=== PATIENT | female | born 1980 | race Caucasian/White ===

== ENCOUNTER 2023-09-15 11:26 | Observation (INO) | payer BC, SELFPAY ==
[2023-09-15] VITALS (14 sets, daily range): BP systolic 162–200; BP diastolic 99–122; BMI 41.3
--- NOTE | 2023-09-15 08:36 | ED.GENMED ---
History of Present Illness
<Kianna Smith PA-C - Last Filed: 09/15/23 13:54>
General
Chief Complaint: Heart Rate Problem
Source: patient
Exam Limitations: none
Time Seen by Provider: 09/15/23 08:01
Nursing documentation reviewed up to this point in time: agreed with
Travel History
Have you had any contact with someone who has COVID-19?: No
Do you have any symptoms of coronavirus? Fever > 100 degrees, chills, cough, shortness of breath, sore throat, loss of taste or smell, muscle aches, or headache?: No
History of Present Illness
History of Present Illness:
43 y/o F h/o HTN, depression
has feeling of heart racing, lightheadedness, nausea
pt says that yesterday after waking up she felt her heart rate was elevated. she didn't check it to know how fast but she felt anxious because of it. all day she tried to do things to help calm her but she wasn't overly stressed about anything and
has no h/o anxiety and was unaware of any specific triggers.
she felt nauseated, lack of appetite and lightheaded at times
she didnt sleep at all last night due to feeling her heart rate was elevated and she couldn't calm down. pt had some diarrhea yesterday and vomited x 3 day, was wretching a bit but didn't have anything in her stomach.
she has not had any chest pain, leg swelling, denies OCP use, h/o dvt/pe, recent surgery or travel
she denies ilicit drug use, alcohol, excessive caffeine
pt is sweaty now and says she isn't sure if she had a fever.
about 2 weeks ago she started taking 3 new meds for suspected
Past History
<Kianna Smith PA-C - Last Filed: 09/15/23 13:54>
Past History
ED Past Medical History: Asthma and HTN
ED Past Surgical History: Urological
Social History
Tobacco: Non-smoker
Alcohol: None
Drug: None
Personal:
Living: with family
Employment: Employed
Family History
Family History: Other (Noncontributory)
Phy Exam
<Kianna Smith PA-C - Last Filed: 09/15/23 13:54>
Physical Exam
Physical Exam:
GENERAL: Alert , very anxious
EYE: pupils equal and reactive
NECK: Supple
ENT: erythema, dry mouth
CARDIAC: tachycardia, no murmur, no edema
LUNGS: Clear breath sounds bilaterally, no acute respiratory distress, no wheezes/rales/rhonchi
ABDOMEN: Soft, without focal tenderness, no r/g, no cvat, normal bowel sounds, obese
NEUROLOGICAL: Alert and oriented, no focal neuro deficits
SKIN: Warm and dry, abrasion left ankle, abdomen, noninfected
a few petechiae around her eyes;
MUSCULOSKELETAL: No edema, well perfused. neg albert's sign
PSYCH: very anxious
Course
<Kianna Smith PA-C - Last Filed: 09/15/23 13:54>
Orders/Labs/Results
Orders:
Orders
09/15/23 07:38
ECG [Electrocardiogram (*1)] Urgent
Reason for Study: Chest Pain
EKG- Treatment ONCE
09/15/23 08:15
0.9% Sodium Chloride 1000 ml [Nss] 1,000 ml IV BOLUS
Ondansetron Injectable [Zofran] 4 mg IV NOW STA
09/15/23 08:17
Lorazepam [Ativan] 1 mg IV NOW STA
Test Result ONCE
09/15/23 08:54
COVID-19 Antigen Urgent
Source: Nasal Swab
Complete Blood Count/With Diff Urgent
Comprehensive Metabolic Panel Urgent
Glycohemoglobin (HgbA1c) Urgent
HCG, Serum Qualitative Screen Urgent
Magnesium Urgent
TSH Reflex To Free T4 Urgent
Urinalysis Reflex To Culture Urgent
Date Specimen was Collected: 09/15/23
Time Specimen was Collected: 08:36
Urine Microscopic Reflex Cult Urgent
Influenza A+B Rapid Molecular Urgent
ALLIE Source: Nasal Swab
Specimen Description:
09/15/23 09:02
Lactic Acid Q4H
Comment: CANCEL 2nd LACTIC ACID IF 1st LACTIC ACID IS LESS THAN 2
Blood Culture Q30M
ALLIE Source: Blood/Venous
Specimen Description:
Blood Culture Q30M
ALLIE Source: Blood/Venous
Specimen Description:
09/15/23 09:03
D-Dimer Urgent
09/15/23 09:33
US Abdomen Complete/Upper Urgent
Comment:
Reason For Exam: nausea/vomiting, fever
09/15/23 09:37
0.9% Sodium Chloride 1000 ml [Nss] 1,000 ml IV BOLUS
09/15/23 10:05
Magnesium Sulfate 2 Gram/50 ml [Magnesium Sulfate] 2 gram in 50 ml IV NOW
09/15/23 10:45
PTT Urgent
Prothrombin Time Urgent
09/15/23 11:11
Labetalol HCl [Trandate] 10 mg IV NOW STA
Lorazepam [Ativan] 1 mg IV Q4HPRN PRN
09/15/23 11:12
Admit/Transfer Patient As Directed
Co-Sign Provider:
Level of Care: Observation services
Assign to:: Telemetry
Physician / Group: teo smiley
Diagnosis: prob viral syndrome
Reason for Telemetry: Medication for Arrhythmia
Date to Stop Telemetry: 09/17/23
Time to Stop Telemetry: 11:00
09/15/23 11:14
Code Status As Directed
Resuscitation Status: Full Code
09/15/23 11:19
Add On- LAB Routine
Tests Added?: HgA1C
EKG [Electrocardiogram (*1)] Urgent
Reason for Study: QTc Monitoring
09/15/23 12:36
Lactic Acid Q4H
Comment: CANCEL 2nd LACTIC ACID IF 1st LACTIC ACID IS LESS THAN 2
09/15/23 20:00
Magnesium Sulfate 1 G/D5w [Magnesium Sulfate] 1 gm in 100 ml IV ONCE
09/17/23 11:00
DC Protocol for Telemetry ONCE
Abnormal Lab Results
09/15/23 09/15/23 09/15/23
08:54 09:02 09:03
Hgb 17.4 H g/dL
(12.0-16.0)
Hct 48.3 H %
(37.0-47.0)
MCH 33.1 H pg
(27.0-31.0)
Plt Count 85 L 10^3/uL
(130-400)
Absolute Lymphs (auto) 0.7 L 10^3/uL
(1.2-3.4)
Neutrophils % 78.6 H %
(42.2-75.2)
Lymphocytes % 12.5 L %
(20.5-51.1)
PT
D-Dimer 0.70 H ug/mlFEU
(0.00-0.50)
Sodium 131 L mmol/L
(135-145)
Chloride 96 L mmol/L
(98-107)
Creatinine 0.5 L mg/dL
(0.6-1.0)
Glucose 162 H mg/dl
(70-99)
Hemoglobin A1c 5.9 H %
(4.0-5.6)
Lactic Acid 2.4 H mmol/L
(0.7-2.0)
Magnesium 1.2 L mg/dl
(1.6-2.3)
Total Bilirubin 3.3 H mg/dl
(0.2-1.3)
AST 95 H U/L
(14-36)
ALT 60 H U/L
(0-35)
Alkaline Phosphatase 186 H U/L
(38-126)
Total Protein 8.8 H g/dl
(6.3-8.2)
Urine Ketones 3+ A
(Negative)
Urine Bilirubin 1+ A
(Negative)
Urine Urobilinogen 2+ A
(Neg - 1+)
Leukocyte Esterase Rfl Trace A
(Negative)
Urine Bacteria (Reflex) Few A
(Negative)
09/15/23
10:45
Hgb
Hct
MCH
Plt Count
Absolute Lymphs (auto)
Neutrophils %
Lymphocytes %
PT 15.1 H Sec
(11.4-14.6)
D-Dimer
Sodium
Chloride
Creatinine
Glucose
Hemoglobin A1c
Lactic Acid
Magnesium
Total Bilirubin
AST
ALT
Alkaline Phosphatase
Total Protein
Urine Ketones
Urine Bilirubin
Urine Urobilinogen
Leukocyte Esterase Rfl
Urine Bacteria (Reflex)
09/15/23 08:54
09/15/23 08:54
Vital Signs
Initial and Last Documented VS:
Initial Vital Signs
Temp Pulse Resp BP Pulse Ox
98.0 F 129 16 200/110 98
09/15/23 07:49 09/15/23 07:49 09/15/23 07:49 09/15/23 07:49 09/15/23 07:49
Last Documented Vital Signs
Temp Pulse Resp BP Pulse Ox
98.0 F 110 20 163/114 93
09/15/23 07:49 09/15/23 11:31 09/15/23 11:30 09/15/23 11:31 09/15/23 11:30
<Sean Marshall, DO - Last Filed: 09/15/23 13:14>
Orders/Labs/Results
Orders:
Orders
09/15/23 07:38
ECG [Electrocardiogram (*1)] Urgent
Reason for Study: Chest Pain
EKG- Treatment ONCE
09/15/23 08:15
0.9% Sodium Chloride 1000 ml [Nss] 1,000 ml IV BOLUS
Ondansetron Injectable [Zofran] 4 mg IV NOW STA
09/15/23 08:17
Lorazepam [Ativan] 1 mg IV NOW STA
Test Result ONCE
09/15/23 08:54
COVID-19 Antigen Urgent
Source: Nasal Swab
Complete Blood Count/With Diff Urgent
Comprehensive Metabolic Panel Urgent
Glycohemoglobin (HgbA1c) Urgent
HCG, Serum Qualitative Screen Urgent
Magnesium Urgent
TSH Reflex To Free T4 Urgent
Urinalysis Reflex To Culture Urgent
Date Specimen was Collected: 09/15/23
Time Specimen was Collected: 08:36
Urine Microscopic Reflex Cult Urgent
Influenza A+B Rapid Molecular Urgent
ALLIE Source: Nasal Swab
Specimen Description:
09/15/23 09:02
Lactic Acid Q4H
Comment: CANCEL 2nd LACTIC ACID IF 1st LACTIC ACID IS LESS THAN 2
Blood Culture Q30M
ALLIE Source: Blood/Venous
Specimen Description:
Blood Culture Q30M
ALLIE Source: Blood/Venous
Specimen Description:
09/15/23 09:03
D-Dimer Urgent
09/15/23 09:33
US Abdomen Complete/Upper Urgent
Comment:
Reason For Exam: nausea/vomiting, fever
09/15/23 09:37
0.9% Sodium Chloride 1000 ml [Nss] 1,000 ml IV BOLUS
09/15/23 10:05
Magnesium Sulfate 2 Gram/50 ml [Magnesium Sulfate] 2 gram in 50 ml IV NOW
09/15/23 10:45
PTT Urgent
Prothrombin Time Urgent
09/15/23 11:11
Labetalol HCl [Trandate] 10 mg IV NOW STA
Lorazepam [Ativan] 1 mg IV Q4HPRN PRN
09/15/23 11:12
Admit/Transfer Patient As Directed
Co-Sign Provider:
Level of Care: Observation services
Assign to:: Telemetry
Physician / Group: teo smiley
Diagnosis: prob viral syndrome
Reason for Telemetry: Medication for Arrhythmia
Date to Stop Telemetry: 09/17/23
Time to Stop Telemetry: 11:00
09/15/23 11:14
Code Status As Directed
Resuscitation Status: Full Code
09/15/23 11:19
Add On- LAB Routine
Tests Added?: HgA1C
EKG [Electrocardiogram (*1)] Urgent
Reason for Study: QTc Monitoring
09/15/23 12:36
Lactic Acid Q4H
Comment: CANCEL 2nd LACTIC ACID IF 1st LACTIC ACID IS LESS THAN 2
09/15/23 20:00
Magnesium Sulfate 1 G/D5w [Magnesium Sulfate] 1 gm in 100 ml IV ONCE
09/17/23 11:00
DC Protocol for Telemetry ONCE
Abnormal Lab Results
09/15/23 09/15/23 09/15/23
08:54 09:02 09:03
Hgb 17.4 H g/dL
(12.0-16.0)
Hct 48.3 H %
(37.0-47.0)
MCH 33.1 H pg
(27.0-31.0)
Plt Count 85 L 10^3/uL
(130-400)
Absolute Lymphs (auto) 0.7 L 10^3/uL
(1.2-3.4)
Neutrophils % 78.6 H %
(42.2-75.2)
Lymphocytes % 12.5 L %
(20.5-51.1)
PT
D-Dimer 0.70 H ug/mlFEU
(0.00-0.50)
Sodium 131 L mmol/L
(135-145)
Chloride 96 L mmol/L
(98-107)
Creatinine 0.5 L mg/dL
(0.6-1.0)
Glucose 162 H mg/dl
(70-99)
Hemoglobin A1c 5.9 H %
(4.0-5.6)
Lactic Acid 2.4 H mmol/L
(0.7-2.0)
Magnesium 1.2 L mg/dl
(1.6-2.3)
Total Bilirubin 3.3 H mg/dl
(0.2-1.3)
AST 95 H U/L
(14-36)
ALT 60 H U/L
(0-35)
Alkaline Phosphatase 186 H U/L
(38-126)
Total Protein 8.8 H g/dl
(6.3-8.2)
Urine Ketones 3+ A
(Negative)
Urine Bilirubin 1+ A
(Negative)
Urine Urobilinogen 2+ A
(Neg - 1+)
Leukocyte Esterase Rfl Trace A
(Negative)
Urine Bacteria (Reflex) Few A
(Negative)
09/15/23
10:45
Hgb
Hct
MCH
Plt Count
Absolute Lymphs (auto)
Neutrophils %
Lymphocytes %
PT 15.1 H Sec
(11.4-14.6)
D-Dimer
Sodium
Chloride
Creatinine
Glucose
Hemoglobin A1c
Lactic Acid
Magnesium
Total Bilirubin
AST
ALT
Alkaline Phosphatase
Total Protein
Urine Ketones
Urine Bilirubin
Urine Urobilinogen
Leukocyte Esterase Rfl
Urine Bacteria (Reflex)
09/15/23 08:54
09/15/23 08:54
Vital Signs
Initial and Last Documented VS:
Initial Vital Signs
Temp Pulse Resp BP Pulse Ox
98.0 F 129 16 200/110 98
09/15/23 07:49 09/15/23 07:49 09/15/23 07:49 09/15/23 07:49 09/15/23 07:49
Last Documented Vital Signs
Temp Pulse Resp BP Pulse Ox
98.0 F 110 20 163/114 93
09/15/23 07:49 09/15/23 11:31 09/15/23 11:30 09/15/23 11:31 09/15/23 11:30
<Kianna Smith PA-C - Last Filed: 09/15/23 13:54>
MDM/Problems Addressed
Differential Diagnosis Includes:
sepsis, anxiety, viral syndrome,less likely PE
MDM/Problems Addressed:
43 y/o F with h /o ureterolithiasis, HTN; 2 days heart racing, anxious feeling, n/v x 3, a few loose stools; no pain, no cp, sob; very anxious; tachy 120s on arrival, low grade temp, some petechiae around her eyes, dry mouth, abdomen nontender; w/u
with thrombocytopenia 85k, mild transaminitis, t bili 3, ketonuria; flu covid neg; lactate 2.4; suspect this is viral in nature but still tachy after 1 liter fluid, getting 2nd liter, US of abdomen to be sure no choledocho which was neg
consider pt could have PE though less likely
signed out to hospitalist for admission, further work up, lactic acid trending, IV hydration, ,etc
<Kianna Smith PA-C - Last Filed: 09/15/23 13:54>
*Critical Care Note
Total Time (30-74mins, 75-104mins- exclusive of procedures): Not Applicable
ED Attending Note
<Kianna Smith PA-C - Last Filed: 09/15/23 13:54>
-
Portions of this chart may have been created with voice recognition software.� Occasional wrong word or��sound alike� substitutions may have occurred due to the inherent limitations of voice recognition software.
<Sean Marshall DO - Last Filed: 09/15/23 13:14>
ED Attending Note
Patient seen and examined by attending physician: Yes
ED Attending Note:
I have reviewed and agree with history and treatment plan by Eliz Smith. My exam revealed 43-year-old female with bilateral periorbital petechiae, abrasion with petechiae on abdomen, soft abdomen. Patient in no distress. Persistent sinus
tachycardia. Admit for thrombocytopenia and hyperbilirubinemia evaluation.
Discharge Plan
Departure
Patient Disposition: Admit
Date of Disposition: 09/15/23
Time of Disposition: 09:51
Admit to: Telemetry
Presentation/result/management discussed w/ accepting MD/DO: Hospitalist
Discharge Problem:
Tachycardia, Thrombocytopenia
Interventions
Interventions:
*Risk Screen - Suicide Last Done: 09/15/23 09:07
*General Assessment Last Done: 09/15/23 09:07
*Neglect/Abuse Screening Last Done: 09/15/23 09:07
ED- Fall Risk Assessment Last Done: 09/15/23 09:07
*ED COVID-19 Vaccine History Last Done: 09/15/23 07:49
ED- Cardiac Assessment Last Done: 09/15/23 09:07
ED- Pulmonary Assessment Last Done: 09/15/23 09:07
[2023-09-15] MEDS: ZOFRAN 4 MG IV (08:48)
[2023-09-15] MEDS: NSS 1000 IV ×3 (08:48→18:21)
[2023-09-15] MEDS: ATIVAN 1 MG IV ×2 (08:49→18:23)
[2023-09-15 09:10] LABS: % Basophils 0.4 % (0-2); % Eosinophils 0.2 % (0-6); % Immature Granulocytes 0.2 % (0-0.5); % Lymphocytes 12.5 % (20.5-51.1); % Monocytes 8.1 % (1.7-9.3); % Neutrophils 78.6 % (42.2-75.2); Absolute Lymphocytes 0.7 10^3/uL (1.2-3.4); Absolute Monocytes 0.4 10^3/uL (0.1-0.6); Absolute Neutrophils 4.3 10^3/uL (1.4-6.5); Hematocrit 48.3 % (37.0-47.0); Hemoglobin 17.4 g/dL (12.0-16.0); Mean Corpuscular Hgb 33.1 pg (27.0-31.0); Nucleated Red Blood Cells % 0 %; Red Blood Cell Count 5.25 10^6/uL (4.20-5.40); Red Cell Dist. Width 12.9 % (11.5-14.5); White Blood Cell Count 5.5 10^3/uL (4.8-10.8)
[2023-09-15 09:16] LABS: HCG, Serum Qualitative Screen Negative
[2023-09-15 09:18] LABS: Urine Albumin Trace (Neg - Trace); Urine Bilirubin 1+ (Negative); Urine Character Slightly Cloudy (Clear); Urine Color Amber; Urine Glucose Negative (Negative); Urine Ketone 3+ (Negative); Urine Leukocyte Trace (Negative); Urine Nitrite Negative (Negative); Urine Occult Blood Negative (Negative); Urine Urobilinogen 2+ (Neg - 1+)
[2023-09-15 09:21] LABS: ALT (SGPT) 60 U/L (0-35); AST (SGOT) 95 U/L (14-36); Alkaline Phosphatase 186 U/L (38-126); Blood Urea Nitrogen 8 mg/dl (7-17); COVID-19 Antigen Negative (Negative); Calcium 9.6 mg/dl (8.4-10.2); Carbon Dioxide 22 mmol/L (22-30); Chloride 96 mmol/L (98-107); Glucose 162 mg/dl (70-99); Magnesium 1.2 mg/dl (1.6-2.3); Potassium 4.1 mmol/L (3.5-5.1); Sodium 131 mmol/L (135-145); Total Bilirubin 3.3 mg/dl (0.2-1.3); Total Protein 8.8 g/dl (6.3-8.2); eGFR > 60.00
[2023-09-15 09:27] LABS: Lactic Acid 2.4 mmol/L (0.7-2.0)
[2023-09-15 09:29] LABS: Urine Squamous Cell 26-30 /LPF (Few)
[2023-09-15 09:30] LABS: Urine Bacteria Few (Negative); Urine Red Blood Cell 0-2 /HPF (0-2)
[2023-09-15 09:32] LABS: Mean Platelet Volume 10.2 fL (7.4-10.4); Platelet Count 85 10^3/uL (130-400)
[2023-09-15 09:50] LABS: TSH Reflex To Free T4 1.06 uIU/ml (0.47-4.68)
--- NOTE | 2023-09-15 10:07 | HPS.HSE ---
Family Physician
-
Family Physician: Paola Fritz
Chief Complaint
-
palpitations, elevated BP
History of Present Illness
43-year-old female with a past medical history of morbid obesity, anxiety, depression, gastroesophageal reflux disease, IBS, exercise-induced asthma, and kidney stones presents with palpitations and elevated blood pressure since yesterday. Patient
reports that she has been feeling nauseous with intermittent vomiting for the last 3 days. Yesterday she started feeling palpitations. She took her blood pressure at home, and the monitor was red. She looked it up on the Internet, and read that
she should go to the ER. She reports palpitations as well, nausea, with dry heaves. She has not been able to sleep due to the symptoms. She denies abdominal pain, denies constipation, denies diarrhea. No fever, no chest pain. It is difficult
for her to take deep breaths with her current symptoms. She was recently seen by urology in the office for right kidney stone, her right flank pain resolved with taking Toradol, Flomax, and Gemtesa. She does have nasal congestion which she thinks
is from her allergies. She denies sore throat, cough.
Medical History
Past Medical History
Past Medical History: Reports Other
Additional Past Medical History:
1. Kidney stones
2. Hypertension.
3. IBS.
4. Depression/anxiety.
5. Allergies/exercise-induced asthma.
6. Glucose intolerance.
7. GERD.
8. Vitamin D deficiency.
9. Hyperlipidemia.
10. Eczema
Past Surgical History: Reports Other
Additional Past Surgical History:
Kidney stones, surgeries in the past as well to remove stones
Social History
Tobacco: Non-smoker
Alcohol: None
Drug: None
Personal:
Living: With Family
Family History
Family History: Not pertinent
Allergies / Home Medications
Allergies reflects when Allergies were last updated in [facility].
Home Medications with original date entered in [facility]
Allergy/Medication List:
Allergies
Allergy/AdvReac Type Severity Reaction Status Date / Time
amoxicillin trihydrate Allergy Abdominal Verified 09/15/23 07:50
[From Augmentin] pain
erythromycin base Allergy Abdominal Verified 09/15/23 07:50
pain
potassium clavulanate Allergy Abdominal Verified 09/15/23 07:50
[From Augmentin] pain
Home Medications Table - record
�Medication �Instructions �Recorded �Confirmed
escitalopram oxalate 20 mg tablet 20 mg PO QPM ##0 06/10/12 09/15/23
(Lexapro)
montelukast 10 mg tablet 10 mg PO HS 06/10/12 09/15/23
famotidine 20 mg tablet (Pepcid) 20 mg PO HS 09/15/23 09/15/23
ketorolac 10 mg tablet 10 mg PO Q6HPRN PRN mild pain 09/15/23 09/15/23
lisinopril 20 1 tab PO QPM 09/15/23 09/15/23
mg-hydrochlorothiazide 25 mg tablet
loratadine 10 mg tablet (Claritin) 10 mg PO HS 09/15/23 09/15/23
omeprazole 20 mg tablet,delayed 20 mg PO HS 09/15/23 09/15/23
release
tamsulosin 0.4 mg capsule 0.4 mg PO QPM 09/15/23 09/15/23
Review of Systems
-
A 12 point ROS was completed and negative except as noted: Yes
Physical Exam
Vital Signs
Vital Signs
Temp Pulse Resp BP Pulse Ox
98.0 F 129 16 200/110 98
09/15/23 07:49 09/15/23 07:49 09/15/23 07:49 09/15/23 07:49 09/15/23 07:49
Physical Exam
General: No Apparent Distress and Morbidly Obese
HEENT: NormoCephalic, Anicteric, Moist mucous membranes and Atraumatic
Respiratory: Clear
Cardiac: S1/S2, Regular Rhythm and Tachycardia
GI: Soft, Non Tender, Non Distended and Normal Bowel Sounds
Musculoskeletal: No Clubbing, No Cyanosis and No Edema
Skin: Warm and Dry
Neuro: Awake, Alert, Oriented and AO x 3
Laboratory Results
-
09/15/23 08:54
09/15/23 08:54
Laboratory Results
Lactic Acid 2.4 mmol/L (0.7-2.0) H 09/15/23 09:02
Total Bilirubin 3.3 mg/dl (0.2-1.3) H 09/15/23 08:54
AST 95 U/L (14-36) H 09/15/23 08:54
ALT 60 U/L (0-35) H 09/15/23 08:54
Alkaline Phosphatase 186 U/L (38-126) H 09/15/23 08:54
Impression/Plan
-
#Palpitations
EKG was sinus tachycardia in the ER, rate 120s
Check D-dimer, if positive would need chest CT to rule out PE
#Hypertensive urgency
Hold home lisinopril�hydrochlorothiazide
Give labetalol 10 mg IV stat and Q6H prn SBP >160
When tolerating p.o., start labetalol 100 mg twice a day
#Nausea/vomiting
CT abdomen and pelvis shows
Diffuse fatty infiltration of the liver.
4 mm nonobstructing right renal calculus
18 mm right renal cyst
Possible viral etiology, continue antiemetics, IV fluids, supportive care
#Elevated lactic acid without lactic acidosis
Lactic acid 2.4, continue IV fluids, repeat
#Profound hypomagnesemia
Replete 2 g by IV now, 1 g by IV in the afternoon
Recheck a.m. mag level
#Anxiety/depression
Continue SSRI, add Ativan 1 mg IV every 4 hours as needed
#Right nonobstructing renal calculus
Her right flank/back pain has resolved, UA without hematuria
Continue Flomax, IV fluids for now
#Gastroesophageal reflux disease
Continue PPI, pepcid
#Allergic rhinitis
Continue loratadine and montelukast
#Morbid obesity due to excess calories
Affects all aspects of care
DVT prophylaxis�SCDs
Full code
Total time spent to see the patient on the floor, examine the patient, review data and lab results, discuss treatment plan with patient, nursing staff around 75 minutes.
[2023-09-15 11:04] LABS: INR 1.19; PT 15.1 Sec (11.4-14.6)
[2023-09-15 11:05] LABS: APTT 28.3 Sec (23.4-35.0)
[2023-09-15] MEDS: MAGNESIUM SULFATE 50 IV (11:07)
[2023-09-15] MEDS: TRANDATE 10 MG IV ×2 (11:31→15:40)
[2023-09-15 11:39] LABS: Glycohemoglobin (HgbA1c) 5.9 % (4.0-5.6)
[2023-09-15 13:06] LABS: Lactic Acid 1.1 mmol/L (0.7-2.0)
--- NOTE | 2023-09-15 14:44 | CM ---
CM reviewed medical records. OBS letter given.
Patient lives independently. Patient denies a history of VN, SNF or DME. Elan is active with her PCP. Patient uses [facility] for medication services.
PLAN: Home no needs
[2023-09-15] MEDS: TYLENOL 650 MG PO (18:20)
[2023-09-15] MEDS: FLOMAX 0.400000000000000022 MG PO (18:21)
[2023-09-15] MEDS: LEXAPRO 20 MG PO (18:21)
[2023-09-15] MEDS: MAGNESIUM SULFATE 100 IV (19:56)
[2023-09-15] MEDS: TRANDATE 100 MG PO (19:56)
[2023-09-15] MEDS: SINGULAIR 10 MG PO (21:09)
[2023-09-15] MEDS: PROTONIX 40 MG PO (21:09)
[2023-09-15] MEDS: PEPCID 20 MG PO (21:09)
[2023-09-15] MEDS: CLARITIN 10 MG PO (21:09)
[2023-09-16 03:00] VITALS: BP 159/98
[2023-09-16 07:00] VITALS: BP 158/99
--- NOTE | 2023-09-16 07:44 | W.PN.HOSP.TC ---
Today's Communication/Plan
-
Stable for discharge today
Assessment / Plan
Assessment / Plan
HPI: 43-year-old female with a past medical history of morbid obesity, anxiety, depression, gastroesophageal reflux disease, IBS, exercise-induced asthma, and kidney stones presents with palpitations and elevated blood pressure since yesterday.
Patient reports that she has been feeling nauseous with intermittent vomiting for the last 3 days. Yesterday she started feeling palpitations. She took her blood pressure at home, and the monitor was red. She looked it up on the Internet, and
read that she should go to the ER. She reports palpitations as well, nausea, with dry heaves. She has not been able to sleep due to the symptoms. She denies abdominal pain, denies constipation, denies diarrhea. No fever, no chest pain. It is
difficult for her to take deep breaths with her current symptoms. She was recently seen by urology in the office for right kidney stone, her right flank pain resolved with taking Toradol, Flomax, and Gemtesa. She does have nasal congestion which
she thinks is from her allergies. She denies sore throat, cough.
#Palpitations
Suspect secondary to anxiety and viral syndrome
EKG was sinus tachycardia in the ER, rate 120s
D-dimer elevated, chest CT negative for PE, negative for acute cardiopulmonary abnormalities
Echo unremarkable, HR now normal on labetalol 100 mg bid
Provided reassurance, follow-up with PCP in 1 week
#Hypertensive urgency
Hold home lisinopril�hydrochlorothiazide
Blood pressure improved on labetalol 100 mg twice daily, will discharge her on this
#Nausea/vomiting
CT abdomen and pelvis shows
Diffuse fatty infiltration of the liver.
4 mm nonobstructing right renal calculus
18 mm right renal cyst
Possible viral etiology
Resolved, tolerating carb controlled diet
#Elevated lactic acid without lactic acidosis
Resolved with IV fluids
#Profound hypomagnesemia
Repleted and resolved
#Anxiety/depression
Continue SSRI, add Ativan 1 mg po every 4 hours as needed
#Right nonobstructing renal calculus
Her right flank/back pain has resolved, UA without hematuria
Continue Flomax
#Gastroesophageal reflux disease
Continue PPI, pepcid
#Allergic rhinitis
Continue loratadine and montelukast
#Morbid obesity due to excess calories
Affects all aspects of care
DVT prophylaxis�SCDs
Full code
Physical Exam
General: No Apparent Distress and Morbidly Obese
HEENT: NormoCephalic, Anicteric, Moist mucous membranes and Atraumatic
Respiratory: Clear
Cardiac: S1/S2, Regular Rhythm and Tachycardia
GI: Soft, Non Tender, Non Distended and Normal Bowel Sounds
Musculoskeletal: No Clubbing, No Cyanosis and No Edema
Skin: Warm and Dry
Neuro: Awake, Alert, Oriented and AO x 3
Anticipated Discharge: Today
Subjective/Interval History
-
Date of Service: September 16, 2023
Objective Data
-
Labs:
Laboratory Results
09/16/23
06:00
WBC Pending
Hgb Pending
Hct Pending
Plt Count Pending
Sodium Pending
Potassium Pending
Chloride Pending
Carbon Dioxide Pending
BUN Pending
Creatinine Pending
Glucose Pending
Calcium Pending
Vital Signs:
Vital Signs
Temp Pulse Resp BP Pulse Ox
98.3 F 88 12 159/98 96
09/16/23 03:00 09/16/23 03:00 09/16/23 03:00 09/16/23 03:00 09/16/23 03:00
I&O
09/15/23 09/16/23 09/17/23
06:59 06:59 06:59
Intake Total 1020 / 1020
Balance 1020 / 1020
[2023-09-16] MEDS: TRANDATE 100 MG PO (08:16)
[2023-09-16] MEDS: NSS 1000 IV (08:16)
[2023-09-16 08:42] LABS: % Basophils 0.7 % (0-2); % Eosinophils 2.9 % (0-6); % Immature Granulocytes 0.4 % (0-0.5); % Monocytes 11.9 % (1.7-9.3); % Neutrophils 49.1 % (42.2-75.2); Absolute Eosinophils 0.1 10^3/uL (0-0.7); Absolute Monocytes 0.3 10^3/uL (0.1-0.6); Absolute Neutrophils 1.4 10^3/uL (1.4-6.5); Hematocrit 42.3 % (37.0-47.0); Hemoglobin 14.6 g/dL (12.0-16.0); Mean Corp Hgb Conc. 34.5 g/dL (33.0-37.0); Mean Corpuscular Hgb 32.8 pg (27.0-31.0); Mean Corpuscular Volume 95.1 fL (81.0-99.0); Nucleated Red Blood Cells % 0 %; Red Blood Cell Count 4.45 10^6/uL (4.20-5.40); Red Cell Dist. Width 12.9 % (11.5-14.5); White Blood Cell Count 2.8 10^3/uL (4.8-10.8)
[2023-09-16 09:04] LABS: Blood Urea Nitrogen 7 mg/dl (7-17); Calcium 8.4 mg/dl (8.4-10.2); Carbon Dioxide 24 mmol/L (22-30); Chloride 102 mmol/L (98-107); Estimated Creatinine Clearance > 125 ml/min; Glucose 122 mg/dl (70-99); Potassium 3.4 mmol/L (3.5-5.1); Sodium 132 mmol/L (135-145); eGFR > 60.00
[2023-09-16 10:23] LABS: Mean Platelet Volume 10.6 fL (7.4-10.4); Platelet Count 45 10^3/uL (130-400)
[2023-09-16 11:00] VITALS: BP 138/89
--- NOTE | 2023-09-16 11:50 | CARDSERVLU ---
Echocardiogram with Lumason completed after protocol screening completed. Allergies verified.
Patent IV site: __left FA__
IV site flushed with 0.9% NaCl pre and post administration.
Diluted bolus method utilized to enhance visualization of ventricular sherman.
Total volume given: _1.0___ mL
Patient tolerated all procedures well without complications.
[2023-09-16] MEDS: KCL 40 MEQ PO (12:11)
[2023-09-16] MEDS: ATIVAN 1 MG PO (12:15)
--- NOTE | 2023-09-16 14:58 | W.DCSUMMARY ---
Discharge Summary
Discharge Data
Date of Admission: 09/15/23
Date of Discharge: 09/16/23
-
Pending Results: No
Hospital Course
Discharge diagnosis:
Palpitations/sinus tachycardia, likely from acute viral syndrome
Acute viral syndrome with nausea and vomiting
Hypertensive urgency
Elevated lactic acid without lactic acidosis
Profound hypomagnesemia
Mildly elevated liver function tests
Fatty liver
Anxiety/depression
Right nonobstructing renal calculus
Glucose intolerance
Allergic rhinitis
Gastroesophageal reflux disease
Morbid obesity due to excess calories
Chest CT:
There is no active cardiopulmonary disease
There is no pulmonary embolism
There is diffuse fatty infiltration of the liver
Abd US:
Diffuse fatty infiltration of the liver.
4 mm nonobstructing right renal calculus
18 mm right renal cyst
Echo:
Normal left ventricular size and systolic function. LV ejection fraction is 55-
60% by visual assessment.
Mild concentric left ventricular hypertrophy.
No significant valvular disease.
No prior study available for comparison.
Hospital Course:
43-year-old female with a past medical history of anxiety, depression, renal stones, gastroesophageal reflux disease, and obesity presented to the ER with hypertension and palpitations. She was found to be in hypertensive urgency, with sinus
tachycardia on EKG. She has been having nausea and vomiting for the past 2 days. She was COVID-negative, influenza negative. She had a mildly elevated lactic acid of 2.2, no acidosis. Her lactic acid normalized with IV fluids.
Her D-dimer was high, chest CT was negative for PE, negative for pneumonia, negative for any acute cardiopulmonary disease. Patient was treated with labetalol 100 mg twice a day for her hypertensive urgency and sinus tachycardia. By the following
day, her hypertension improved, her tachycardia resolved. Her lisinopril�hydrochlorothiazide was discontinued.
She had mildly elevated LFTs, abdominal ultrasound was negative. It does show a fatty liver. Suspect her mildly elevated LFTs are from her viral syndrome.
Suspect she has an acute viral syndrome causing her nausea and vomiting. She received supportive treatment. By the following day, her vomiting resolved. She tolerated a carb controlled diet.
Echocardiogram was checked, also found to be normal. Suspect her sinus tachycardia is likely due to her acute viral syndrome as well as anxiety. She did receive Ativan for anxiety in the hospital. She was continued on her Lexapro. Much
reassurance was provided to her regarding that her heart and lungs were all normal. She is medically stable for discharge on labetalol 100 mg twice a day. She can continue her Lexapro. A prescription was provided for Ativan 1 mg twice a day as
needed, 10 tablets. She has been instructed to follow-up with her primary care doctor in 1 week.
Disposition: Home self-care
Discharge planning: Required 40 minutes
Discharge Plan
-
Patient Disposition: Home (Routine Discharge)
Discharge Diagnosis/Procedures: Acute viral syndrome, vomiting, palpitations, anxiety, hypertensive urgency, 4 mm right nonobstructing renal stone
Condition: Good
Diet: Diabetic, Carb Controlled
Activity: As tolerated
Driving Restrictions: As prior to admission
Referrals:
Paola Fritz NP [Family Provider] - in one week
Prescriptions:
New
labetalol 100 mg Tablet
100 mg PO BID Qty: 60 0RF
lorazepam [Ativan] 1 mg tablet
1 mg PO BID PRN (Reason: anxiety) Qty: 10 0RF
Continued
montelukast 10 MG tablet
10 mg PO HS
escitalopram oxalate [Lexapro] 20 mg Tablet
20 mg PO QPM Qty: 0
famotidine [Pepcid] 20 mg Tablet
20 mg PO HS
loratadine [Claritin] 10 mg Tablet
10 mg PO HS
tamsulosin 0.4 MG capsule
0.4 mg PO QPM
omeprazole 20 mg Tablet,Delayed Release (Dr/Ec)
20 mg PO HS
Discontinued
ketorolac 10 mg Tablet
10 mg PO Q6HPRN PRN (Reason: mild pain)
Rx Instructions:
maximum total duration of 5 days from all oral, intranasal, or parenteral formulations
lisinopril-hydrochlorothiazide 20-25 mg Tablet
1 tab PO QPM
Discharge Orders:
Discharge Patient (As Directed); Ordered 09/16/23
Ordered By: Tomás Dale
Discharge Date and Time
Discharge Date/Time: 09/16/23 15:45
Print Language: PANAMANIAN
[2023-09-16 15:00] VITALS: BP 152/97
--- NOTE | 2023-09-16 15:11 | CM ---
Patient seen at bedside, reviewed concern about anxiety and patient stated that she is better now that she will be discharged. Supports offered and CM will continue to follow for discharge planning needs.
Plan; home with no needs.
--- NOTE | 2023-09-16 15:30 | PTCARENOTE ---
Patient written for discharge. Removed IV. Went over discharge instructions with patient.
Ambulated with patient out to main lobby. Patient left hospital with father.
== END 2023-09-16 15:45 | disposition home or self-care (01) ==
LOC: 4 WEST ACU 11:26
PROVIDERS: Physician Assistant; ADMITTING PHYSICIAN Family Medicine; EMERGENCY PHYSICIAN Emergency Medicine; FAMILY PHYSICIAN Internal Medicine
DX: I16.0 Hypertensive urgency (principal); R00.0 Tachycardia, unspecified; R11.2 Nausea with vomiting, unspecified; R42 Dizziness and giddiness; F32.A Depression, unspecified; F41.9 Anxiety disorder, unspecified; R79.89 Other specified abnormal findings of blood chemistry; R50.9 Fever, unspecified; B34.9 Viral infection, unspecified; D69.6 Thrombocytopenia, unspecified; E83.42 Hypomagnesemia; E66.01 Morbid (severe) obesity due to excess calories; N20.2 Calculus of kidney with calculus of ureter; K76.0 Fatty (change of) liver, not elsewhere classified; N28.1 Cyst of kidney, acquired; K58.0 Irritable bowel syndrome with diarrhea; J45.990 Exercise induced bronchospasm; K21.9 Gastro-esophageal reflux disease without esophagitis; E78.5 Hyperlipidemia, unspecified; R00.2 Palpitations; Z87.442 Personal history of urinary calculi; Z88.1 Allergy status to other antibiotic agents; Z88.3 Allergy status to other anti-infective agents; Z68.41 Body mass index [BMI] 40.0-44.9, adult; Z11.52 Encounter for screening for COVID-19
CPT/HCPCS: 71275; 76700; 80048; 80053; 81003; 81015; 83036; 83605; 83735; 84443; 84703; 85025; 85379; 85610; 85730; 87040; 87502; 87811; 93005; 93306; 96361; 96365; 96366; 96375; 99285; G0378; Q9967